=== PATIENT | female | born 1970 | race Caucasian/White ===

== ENCOUNTER 2016-09-15 06:55 | Emergency (ER) | payer BC ==
[~2016-09-15] VITALS: Ht 157.5 cm; Wt 75.0 kg
[2016-09-15 06:57] VITALS: BP 164/88; PULSE 97; RESP 15; TEMP 97.9; O2SAT 96
[2016-09-15 08:20] LABS: BACTERIA, URINE FEW /hpf; BLOOD, URINE MOD (NEG); COMMENT (UR) CULTURE INDICATED; CULTURE IF INDICATED CULTURE INDICATED; GLUCOSE,URINE NEG (NEG); KETONE, URINE NEG (NEG); MUCUS URINE FEW /lpf (OCC); NITRITE,URINE NEG (NEG); PH, URINE 6.5 (5.0-8.5); SQUAMOUS EPITHELIAL CELL URINE <1 /hpf (0-5); URINE COLOR YELLOW (YELLW/STRAW)
--- NOTE | 2016-09-15 08:22 | PD ---
HPI Chief Complaint: Complaint Time Seen by Provider: 08:16 Travel History International Travel<30 days: No Contact w/Intl Traveler<30days: No Traveled to known affect area: No History of Present Illness HPI This is a 46-year-old female who presents to the emergency department with dysuria that on for 24 hours associated with frequency and urgency associated with some subjective fevers and chills. She reports that over the past 2-3 weeks she has had some bilateral back pain. She denies any vaginal discharge. She's had urinary tract infections in the past and she says this feels similar. [facility] Past Medical History Narrative Medical food allergies visiting from [place] ?: Not Past Surgical History Hysterectomy: Yes Social History Alcohol Use: No Tobacco Use: No Substance Use: No Allergies-Medications (Allergen,Severity, Reaction): Coded Allergies: Aspirin (Verified Allergy, Severe, 09/15/16) Reported Meds & Prescriptions Reported Meds & Active Scripts Active No Active Prescriptions or Reported Medications Review of Systems Except as stated in HPI: all other systems reviewed are Neg Physical Exam Narrative GENERAL: Well-nourished, well-developed patient. SKIN: Warm and dry. HEAD: Normocephalic. EYES: No scleral icterus. No injection or drainage. NECK: Supple, trachea midline. CARDIOVASCULAR: Regular rate and rhythm without murmurs. RESPIRATORY: Breath sounds equal bilaterally. No accessory muscle use. GASTROINTESTINAL: Abdomen soft, non-tender, nondistended. MUSCULOSKELETAL: No cyanosis, or edema. Data Data Last Documented VS Vital Signs Date Time Temp Pulse Resp B/P Pulse Ox O2 Delivery O2 Flow Rate FiO2 09/15/16 06:57 97.9 97 15 164/88 96 Room Air Orders Urinalysis - C+S If Indicated (09/15/16 07:13) Urine Culture (09/15/16 07:15) Labs Laboratory Tests Test 09/15/16 07:15 Urine Color YELLOW Urine Turbidity HAZY Urine pH 6.5 Urine Specific Fine 1.011 Urine Protein TRACE mg/dL Urine Glucose (UA) NEG mg/dL Urine Ketones NEG mg/dL Urine Occult Blood MOD Urine Nitrite NEG Urine Bilirubin NEG Urine Urobilinogen LESS THAN 2.0 MG/DL Urine Leukocyte Esterase LARGE Urine RBC /hpf Urine WBC /hpf Urine WBC Clumps RARE Urine Squamous Epithelial <1 /hpf Cells Urine Bacteria FEW /hpf Urine Mucus FEW /lpf Microscopic Urinalysis Comment CULTURE INDICATED MDM Medical Decision Making Medical Screen Exam Complete: Yes Emergency Medical Condition: Yes Interpretation(s) Afebrile Differential Diagnosis Urinary tract infection, pyelonephritis, sepsis Narrative Course This is a 46-year-old female who presents the emergency department with signs and symptoms classic for urinary tract infection. She is nontoxic appearing. I think she is appropriate for outpatient antibiotics. Patient will be placed on Keflex. She also was given a dose of fluconazole when necessary as she frequently develops urinary tract infections on antibiotics. Diagnosis Primary Impression: Urinary tract infection Qualified Code: N30.01 - Acute cystitis with hematuria Patient Instructions: General Instructions Additional Instructions: If you develop fever, persistent vomiting, back pain, or inability to eat return to the emergency department as your urine infection may have progressed to a kidney infection. Complete your antibiotics as prescribed. Stay well hydrated with Gatorade or water. Followup with your primary care physician in 2-3 days if your symptoms have not resolved. Med/Other Pt SpecificInfo: Prescription(s) given Scripts Fluconazole 150 Mg [id number] Mg PO ONCE PRN (ITCHING) #1 TAB Ref 0 Prov:Yari Funez MD 09/15/16 Cephalexin (Keflex)500 Mg [id number] Mg PO BID 7 Days Ref 0 Prov:Yari Funez MD 09/15/16 Disposition: 01 DISCHARGE HOME Condition: Stable Yari Funez MD Sep 15, 2016 08:22
[2016-09-15] MEDS ORDERED: CEPH-460 PO (08:25)
[2016-09-15] MEDS ORDERED: FLUC150T PO (08:25)
== END 2016-09-15 09:31 | disposition home or self-care (01) ==
LOC: NEPE 06:55
DX: N30.01 Acute cystitis with hematuria (principal); B96.20 Unspecified Escherichia coli [E. coli] as the cause of diseases classified elsewhere
CPT/HCPCS: 81001; 87077; 87086; 87186; 99284